=== PATIENT | female | born 1975 | race Two or more races ===

== ENCOUNTER 2021-09-18 04:22 | Day surgery (SDC) | payer BC ==
[2021-09-12 15:07] VITALS: BMI 30.9
[2021-09-18] MEDS ORDERED: PROPOFOL 20 ML ONE ×2 (07:27→08:31)
[2021-09-18] MEDS ORDERED: MIDAZOLAM HCL 2 MG/2 ML SINGLE DOSE VIAL ONE ×2 (07:27)
[2021-09-18] MEDS ORDERED: SEVOFLURANE 250 ML BTL ONE (07:28)
[2021-09-18] MEDS ORDERED: DESFLURANE GAS 240 ML BOTTLE IH ONE (07:28)
[2021-09-18] MEDS ORDERED: LIDOCAINE HCL/PF 2% SDV 5ML VIAL ONE (07:30)
[2021-09-18] MEDS ORDERED: ROPIVACAINE HCL 0.5% 30ML VIAL ONE (07:33)
[2021-09-18] MEDS ORDERED: ONDANSETRON 4 MG/2 ML VIAL IVPUSH PRN (07:48)
[2021-09-18] MEDS ORDERED: oxyCODONE HCL 5 MG TABLET PO PRN ×2 (07:48)
[2021-09-18] MEDS ORDERED: LACTATED RINGERS SOLUTION 1,000 ML IV SCH (08:00)
[2021-09-18] MEDS ORDERED: ceFAZolin SODIUM 1 GM VIAL ONE (08:36)
[2021-09-18] MEDS ORDERED: ceFAZolin SODIUM 1 GM VIAL IVPB ONE (08:45)
[2021-09-18] MEDS ORDERED: DEXAMETHASONE SOD PHOSPHATE 4 MG/1 ML VIAL ONE (08:47)
[2021-09-18] MEDS ORDERED: ACETAMINOPHEN INJECTION 100 ML IVPB ONE (08:53)
[2021-09-18] MEDS ORDERED: KETOROLAC TROMETHAMINE 30 MG/1 ML VIAL ONE (09:30)
[2021-09-18] MEDS ORDERED: FENTANYL CITRATE/PF 50 MCG/ML VIAL ONE (10:03)
[2021-09-18 12:53] VITALS: BP 118/52; PULSE 50; TEMP 97.6
== END 2021-09-18 14:10 | disposition home or self-care (01) ==
LOC: JASU-SURG 04:22
PROVIDERS: ATTEND Orthopaedic Surgery
PROC: 0MRP47Z Replacement of Left Knee Bursa and Ligament with Autologous Tissue Substitute, Percutaneous Endoscopic Approach (ICD-10-PCS; principal; 2021-09-18 09:30)
DX: S83.512A Sprain of anterior cruciate ligament of left knee, initial encounter (principal); X58.XXXA Exposure to other specified factors, initial encounter; Y93.9 Activity, unspecified; Y92.9 Unspecified place or not applicable
CPT/HCPCS: 81025; 94760; 97116-GP; C1713